=== PATIENT | male | born 1965 | race Hispanic/Latino ===

== ENCOUNTER → 2021-06-25 | Outpatient (CLI) | payer BC | END | disposition home or self-care (01) | LOC: SHCH 15:01 | PROVIDERS: ATTEND Internal Medicine Cardiovascular Disease | DX: I65.23 Occlusion and stenosis of bilateral carotid arteries (principal); I25.10 Atherosclerotic heart disease of native coronary artery without angina pectoris | CPT/HCPCS: 93880 ==